=== PATIENT | male | born 2000 | race Hispanic/Latino ===

== ENCOUNTER 2019-08-30 21:03 | Emergency (ER) | payer MEDICAID, OTHER ==
[2019-08-30] MEDS ORDERED: EPINEPHRINE 1 MG/ML AMPULE ONE (21:17)
[2019-08-30] MEDS ORDERED: DiphenhydrAMINE HCL 50 MG/ML VIAL ONE (21:18)
[2019-08-30] MEDS ORDERED: FAMOTIDINE/PF 20 MG/2 ML VIAL IV ONE (21:18)
[2019-08-30] MEDS ORDERED: METHYLPREDNISOLONE SOD SUCC 125MG/2ML VIAL ONE (21:18)
[2019-08-30] MEDS ORDERED: IPRATROPIUM/ALBUTEROL SULFATE 3 ML SOLUTION IH ONE (21:37)
== END 2019-08-31 00:04 | disposition home or self-care (01) ==
LOC: EDH 21:03
DX: T78.40XA Allergy, unspecified, initial encounter (principal); L50.9 Urticaria, unspecified; J98.01 Acute bronchospasm; X58.XXXA Exposure to other specified factors, initial encounter; Z90.49 Acquired absence of other specified parts of digestive tract
CPT/HCPCS: 94640; 96372; 96374; 96375; 99291; J0171; J1200; J2930; J3490